=== PATIENT | female | born 1970 | race Caucasian/White ===

== ENCOUNTER 2017-06-09 22:06 | Inpatient (IN) | payer OTHER ==
[~2017-06-09] VITALS: Ht 162.6 cm; Wt 101.2 kg
--- NOTE | ~2017-06-09 | EKG ---
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
[2017-06-09 22:07] VITALS: BP 205/101
[2017-06-09] MEDS ORDERED: HYDROCHLOROTHIA25 M2 PO (22:15)
[2017-06-09] MEDS ORDERED: ZESTRIL20 MG PO (22:15)
[2017-06-09] MEDS ORDERED: OMEPRAZOLE20 MG PO (22:17)
[2017-06-09] MEDS ORDERED: MOBIC7.5 MG PO (22:17)
[2017-06-09 22:22] LABS: HEMATOCRIT 27.6 % (37.0-47.0); HEMOGLOBIN 8.6 gm/dL (12.0-15.0); MCHC 31.3 g/dL (28.0-37.0); MCV 60.7 fL (80.0-100.0); PLATELET COUNT 538 thou/uL (150-400); RBC 4.55 mil/uL (4.20-5.00); RDW 16.9 % (10.5-14.5); WBC 13.5 thou/uL (4.0-11.0)
[2017-06-09 22:25] LABS: MANUAL DIFF YES
[2017-06-09 22:28] LABS: ANION GAP 14 mmol/L (7-16); BUN 11 mg/dL (7-18); CALCIUM 9.5 mg/dL (8.5-10.1); CHLORIDE 99 mmol/L (98-107); CO2 25 mmol/L (21-32); CREATININE 0.9 mg/dL (0.6-1.0); GLUCOSE 118 mg/dL (74-106); SODIUM 138 mmol/L (136-145)
[2017-06-09 22:30] LABS: POTASSIUM 2.6 mmol/L (3.5-5.1)
[2017-06-09 22:39] LABS: TROPONIN-I < 0.04 ng/mL (<0.06)
[2017-06-09 22:43] LABS: ABSOLUTE NEUTROPHILS 10.3 thou/uL (1.4-8.2); ANISOCYTOSIS 1+; HYPOCHROMASIA 2+; MICROCYTES 3+; OVALOCYTES FEW; POLYCHROMASIA SLIGHT; TOTAL CELL COUNT 100
[2017-06-09 23:43] VITALS: BP 147/94
[2017-06-09 23:53] VITALS: BP 170/91
[2017-06-10 03:43] VITALS: BP 141/91
[2017-06-10 06:19] VITALS: BP 159/86
[2017-06-10 08:00] VITALS: BP 187/105
[2017-06-10 10:34] LABS: HEMATOCRIT 25.8 % (37.0-47.0); HEMOGLOBIN 8.1 gm/dL (12.0-15.0); MCH 19.5 pg (26.0-34.0); MCHC 31.4 g/dL (28.0-37.0); MCV 62.2 fL (80.0-100.0); RBC 4.15 mil/uL (4.20-5.00); WBC 8.5 thou/uL (4.0-11.0)
[2017-06-10 11:08] LABS: ANION GAP 10 mmol/L (7-16); BUN 13 mg/dL (7-18); CALCIUM 9.1 mg/dL (8.5-10.1); CHLORIDE 104 mmol/L (98-107); CO2 26 mmol/L (21-32); GLUCOSE 157 mg/dL (74-106); SODIUM 140 mmol/L (136-145); TROPONIN-I < 0.04 ng/mL (<0.06)
[2017-06-10 11:10] LABS: POTASSIUM 3.7 mmol/L (3.5-5.1)
[2017-06-10 12:00] VITALS: BP 155/66
[2017-06-10 16:00] VITALS: BP 162/80
[2017-06-10 19:46] VITALS: BP 131/84
[2017-06-11 04:29] VITALS: BP 121/63
[2017-06-11 08:57] VITALS: BP 143/69
[2017-06-11] MEDS ORDERED: CATAPRES0.1 MG PO (09:59)
[2017-06-11] MEDS ORDERED: ASPIR 8181 MG PO (09:59)
[2017-06-11 10:07] VITALS: BP 143/69
== END 2017-06-11 11:35 | disposition home or self-care (01) | DRG 313 ==
LOC: ER 22:06 → EROBS 23:22 → 4S 23:22 → 4E 06-10 00:07 → 4S 06-10 00:17 → ENTRNSPT 06-11 10:44 → EDTRNSPTSTS 06-11 10:47 → 4S 06-11 11:35
PROVIDERS: Emergency Medicine; Nurse Practitioner Family
DX: R07.9 Chest pain, unspecified (principal); Z79.82 Long term (current) use of aspirin; E87.6 Hypokalemia; F41.9 Anxiety disorder, unspecified; E83.42 Hypomagnesemia; I10 Essential (primary) hypertension; K21.9 Gastro-esophageal reflux disease without esophagitis; D72.829 Elevated white blood cell count, unspecified; D63.8 Anemia in other chronic diseases classified elsewhere; Z79.899 Other long term (current) drug therapy; Z91.040 Latex allergy status; Z90.49 Acquired absence of other specified parts of digestive tract; Z82.49 Family history of ischemic heart disease and other diseases of the circulatory system
CPT/HCPCS: 10100